=== PATIENT | female | born 1975 | race American Indian/Alaskan Native ===

== ENCOUNTER 2016-08-15 10:07 | Emergency (ER) | payer SELFPAY ==
[2016-08-15 11:13] VITALS: BP 136/80
[2016-08-15 14:34] LABS: Basophils % (Auto) 0.7 % (0.0-1.8); Eosinophils % (Auto) 2.7 % (0.0-4.3); Hematocrit 40.3 % (30.3-42.9); Hemoglobin 13.4 gm/dl (10.1-14.3); Mean Corpuscular HGB Conc 33 % (30-34); Mean Corpuscular Hemoglobin 29 pg (28-32); Mean Corpuscular Volume 87 fl (79-97); Platelet Count 347 K/mm3 (140-440); Red Blood Count 4.64 M/mm3 (3.65-5.03); Red Cell Distribution Width 13.7 % (13.2-15.2)
[2016-08-15 14:41] LABS: Amylase 75 units/L (27-131); Anion Gap 15 mmol/L; BUN/Creatinine Ratio 13.75; Blood Urea Nitrogen 11 mg/dL (7-17); Calcium 8.8 mg/dL (8.4-10.2); Carbon Dioxide 25 mmol/L (22-30); Chloride 103.7 mmol/L (98-107); Glucose 112 mg/dL (65-100); Lipase 28 units/L (13-60); Potassium 4.1 mmol/L (3.6-5.0); Sodium 140 mmol/L (137-145)
--- NOTE | 2016-08-15 14:41 | Emergency Department Report ---
HPI - General Chief Complaint: Dental/Oral Time Seen by Provider: 08/15/16 13:38 - HPI HPI: 40-year-old female presents today with left lower toothache 3 weeks. Denies having a dentist. Positive for subjective fever, nausea, left earache. Patient is also complaining of right flank pain that is worse with movement. Patient states that she has history of kidney infection. Tried Tylenol PM and ibuprofen without relief. Describes her pain as 10 out of 10 constant, throbbing, shooting pain. Denies vomiting, chest pain, shortness of breath, abdominal pain, blood in urine, increased urinary frequency or urgency, burning upon urination, vaginal bleeding, vaginal discharge. ED Past Medical Hx - Past Medical History Previous Medical History?: No - Surgical History Additional Surgical History: right hand/elbow and right knee,tonsillectomy - Social History Smoking Status: Current Every Day Smoker Substance Use Type: Alcohol - Medications Home Medications: Home Medications Medication Instructions Recorded Confirmed Last Taken Type Fluconazole [Diflucan TAB] 150 mg PO ONCE #2 tablet 08/15/16 Unknown Rx Levofloxacin [Levaquin] 750 mg PO QDAY #5 tablet 08/15/16 Unknown Rx Penicillin Vk [Veetids TAB] 500 mg PO QID #56 tablet 08/15/16 Unknown Rx ED Review of Systems ROS: Stated complaint: TOOTHACHE Other details as noted in HPI Constitutional: denies: chills, fever, malaise Eyes: denies: eye pain ENT: dental pain. denies: ear pain, throat pain, congestion Respiratory: denies: cough, shortness of breath, wheezing Cardiovascular: denies: chest pain, palpitations Endocrine: no symptoms reported Gastrointestinal: nausea. denies: abdominal pain, vomiting Genitourinary: denies: urgency, dysuria, frequency, hematuria, discharge Neurological: denies: headache, weakness Physical Exam - Physical Exam Vital Signs: Vital Signs 08/15/16 11:09 Temperature 98 F Pulse Rate 59 L Respiratory 18 Rate Blood Pressure 136/80 O2 Sat by Pulse 100 Oximetry Physical Exam: GENERAL: The patient is well-developed and well-nourished. Patient is in NAD. HEAD: Normocephalic. Atraumatic. EYES: PERRL. EARS: External auditory canals and tympanic membranes clear; hearing grossly intact. NOSE: Normal nasal mucosa with no nasal discharge. THROAT: No erythema, swelling or exudates. DENTAL: Tenderness to palpation of tooth #19. Positive for dental caries. No abscess, drainage or bleeding noted. NECK: Supple, nontender, without lymphadenopathy. CHEST/LUNGS: Clear to auscultation throughout. HEART/CARDIOVASCULAR: Regular rate and rhythm. No murmurs, rubs or gallops. ABDOMEN: Abdomen is soft, nontender. Bowel sounds normoactive. No guarding or rebound tenderness. Positive for right-sided CVA tenderness. EXTREMITIES: Peripheral pulses intact. Capillary refill less than 2 seconds. NEURO: Alert and oriented x 3. Normal gait. ED Course Vital Signs 08/15/16 11:09 Temperature 98 F Pulse Rate 59 L Respiratory 18 Rate Blood Pressure 136/80 O2 Sat by Pulse 100 Oximetry ED Medical Decision Making - Lab Data Result diagrams: 08/15/16 14:12 08/15/16 14:12 Vital Signs 08/15/16 08/15/16 11:09 15:17 Temperature 98 F Pulse Rate 59 L Respiratory 18 18 Rate Blood Pressure 136/80 O2 Sat by Pulse 100 Oximetry Lab Results 08/15/16 08/15/16 08/15/16 Range/Units 14:12 14:12 15:12 WBC 7.0 (4.5-11.0) K/mm3 RBC 4.64 (3.65-5.03) M/mm3 Hgb 13.4 (10.1-14.3) gm/dl Hct 40.3 (30.3-42.9) % MCV 87 (79-97) fl MCH 29 (28-32) pg MCHC 33 (30-34) % RDW 13.7 (13.2-15.2) % Plt Count 347 (140-440) K/mm3 Lymph % (Auto) 29.7 (13.4-35.0) % [place] % (Auto) 6.9 (0.0-7.3) % Eos % (Auto) 2.7 (0.0-4.3) % Baso % (Auto) 0.7 (0.0-1.8) % Lymph # 2.1 (1.2-5.4) K/mm3 [place] # 0.5 (0.0-0.8) K/mm3 Eos # 0.2 (0.0-0.4) K/mm3 Baso # 0.0 (0.0-0.1) K/mm3 Seg Neutrophils % 60.0 (40.0-70.0) % Seg Neutrophils # 4.2 (1.8-7.7) K/mm3 Sodium 140 (137-145) mmol/L Potassium 4.1 (3.6-5.0) mmol/L Chloride 103.7 (98-107) mmol/L Carbon Dioxide 25 (22-30) mmol/L Anion Gap 15 mmol/L BUN 11 (7-17) mg/dL Creatinine 0.8 (0.7-1.2) mg/dL Estimated GFR > 60 ml/min BUN/Creatinine Ratio 13.75 % Glucose 112 H (65-100) mg/dL Calcium 8.8 (8.4-10.2) mg/dL Amylase 75 (27-131) units/L Lipase 28 (13-60) units/L Urine Color Yellow (Yellow) Urine Turbidity Clear (Clear) Urine pH 7.0 (5.0-7.0) Ur Specific [place] 1.011 (1.003-1.030) Urine Protein <15 mg/dl (Negative) mg/dL Urine Glucose (UA) Neg (Negative) mg/dL Urine Ketones Neg (Negative) mg/dL Urine Blood Neg (Negative) Urine Nitrite Neg (Negative) Ur Reducing Substances Not Reportable Urine Bilirubin Neg (Negative) Urine Ictotest Not Reportable Urine Urobilinogen 2.0 (<2.0) mg/dL Ur Leukocyte Esterase Mod (Negative) Urine WBC (Auto) 13.0 H (0.0-6.0) /HPF Urine RBC (Auto) 2.0 (0.0-6.0) /HPF U Epithel Cells (Auto) 3.0 (0-13.0) /HPF Urine Bacteria (Auto) 1+ (Negative) /HPF Urine Mucus Few /HPF Urine HCG, Qual Negative (Negative) - Medical Decision Making 40-year-old female presents today with left lower toothache and left flank pain. Her lab results are within normal limits. Her urinalysis reveals moderate leukocyte esterase and elevated urine WBC. Patient is in no acute distress at this time. She will be discharged home and is encouraged to follow up with a primary care provider. She will be sent home on Penicillin VK, Levaquin and Tylenol 3 and is encouraged to return to the emergency room for any worsening symptoms. Patient will also be given Diflucan for possible yeast infection post antibiotic use. Critical care attestation.: If time is entered above; I have spent that time in minutes in the direct care of this critically ill patient, excluding procedure time. ED Disposition Clinical Impression: Toothache UTI (urinary tract infection) Qualifiers: Urinary tract infection type: acute cystitis Hematuria presence: without hematuria Qualified Code(s): N30.00 - Acute cystitis without hematuria Disposition: DISCHARGED TO HOME OR SELFCARE Is pt being admited?: No Does the pt Need Aspirin: No Condition: Stable Instructions: Toothache (ED), Urinary Tract Infection in Women (ED) Additional Instructions: Follow-up with primary care provider and dentist. Return to the emergency department if symptoms worsen. Prescriptions: Fluconazole [Diflucan TAB] 150 mg PO ONCE #2 tablet Levofloxacin [Levaquin] 750 mg PO QDAY #5 tablet Penicillin Vk [Veetids TAB] 500 mg PO QID #56 tablet Referrals: PRIMARY CARE, [Primary Care Provider] - 3-5 Days [facility] [Outside] - 3-5 Days [facility] [Outside] - 3-5 Days [facility] [place] [facility] [place]] - 3-5 Days Forms: Work/School Release Form(ED), Accompanied Note Time of Disposition: 15:48
[2016-08-15] MEDS ORDERED: TORADOL IM ONE (15:10)
[2016-08-15 15:35] LABS: Mucus,Urine FEW /HPF
[2016-08-15 15:37] LABS: Bacteria,Urine 1+ /HPF (Negative); Bilirubin,Urine NEG (Negative); Blood,Urine NEG (Negative); Ketones,Urine NEG (Negative); Leukocyte Esterase,Urine MOD (Negative); Nitrite,Urine NEG (Negative); Protein,Urine <15 mg/dL mg/dL (Negative)
== END 2016-08-15 16:07 | disposition home or self-care (01) ==
LOC: ED 10:07
DX: N30.00 Acute cystitis without hematuria (principal); K08.89 Other specified disorders of teeth and supporting structures; F17.200 Nicotine dependence, unspecified, uncomplicated
CPT/HCPCS: 36415; 80048; 81001; 81025; 82150; 83690; 85025; 96372; 99283; J1885